=== PATIENT | female | born 1945 | race Caucasian/White ===

== ENCOUNTER 2019-02-05 18:45 | Emergency (ER) | payer SELFPAY ==
[2019-02-05 20:29] LABS: ABSOLUTE BASOPHILS # (AUTO) 0.1 10^3/uL (0.0-0.2); ABSOLUTE EOSINOPHILS # (AUTO) 0.1 10^3/uL (0.0-0.6); ABSOLUTE LYMPHOCYTES (AUTO) 1.2 10^3/uL (0.5-4.7); ABSOLUTE MONOCYTES (AUTO) 0.7 10^3/uL (0.1-1.4); ABSOLUTE NEUT (AUTO) 7.2 10^3/uL (1.7-8.2); BASOPHILS % (AUTO) 0.6 % (0-2); EOSINOPHILS % (AUTO) 0.7 % (0-6); HEMATOCRIT 33.7 % (36.0-47.0); HEMOGLOBIN 11.6 g/dL (12.0-15.5); MEAN CORPUSCULAR HEMOGLOBIN 29.3 pg (27.0-33.4); MEAN CORPUSCULAR HGB CONC 34.5 g/dL (32.0-36.0); MEAN CORPUSCULAR VOLUME 85 fl (80-97); MONOCYTES % (AUTO) 7.2 % (3-13); PLATELET COUNT 316 10^3/uL (150-450); RED BLOOD COUNT 3.96 10^6/uL (3.72-5.28); RED CELL DISTRIBUTION WIDTH 12.7 % (11.5-14.0); SEGMENTED NEUTROPHILS % (AUTO) 78.5 % (42-78); TOTAL CELLS COUNTED % (AUTO) 100 %; WHITE BLOOD COUNT 9.2 10^3/uL (4.0-10.5)
[2019-02-05 20:53] LABS: ALANINE AMINOTRANSFERASE 18 U/L (9-52); ALBUMIN 3.8 g/dL (3.5-5.0); ALKALINE PHOSPHATASE 45 U/L (38-126); ANION GAP 12 (5-19); ASPARTATE AMINO TRANSFERASE 19 U/L (14-36); BILIRUBIN,DIRECT 0.3 mg/dL (0.0-0.4); BILIRUBIN,TOTAL 0.4 mg/dL (0.2-1.3); BLOOD UREA NITROGEN 15 mg/dL (7-20); CALCIUM 9.5 mg/dL (8.4-10.2); CARBON DIOXIDE 26 mmol/L (22-30); CHLORIDE 92 mmol/L (98-107); GLUCOSE 112 mg/dL (75-110); POTASSIUM 3.6 mmol/L (3.6-5.0); SODIUM 130.3 mmol/L (137-145); TOTAL PROTEIN 7.1 g/dL (6.3-8.2)
--- NOTE | 2019-02-05 21:17 | ER Document Report ---
ED General - General Chief Complaint: Eye Problem Stated Complaint: EYE INJURY Time Seen by Provider: 02/05/19 19:04 Primary Care Provider: REGINA LE [Primary Care Provider] - Follow up as needed TRAVEL OUTSIDE OF THE [place] IN LAST 30 DAYS: No - HPI Notes: Patient is a 73-year-old female, who does not see doctors regularly, sent in for evaluation by ophthalmology. Evidently approximately 11 days ago she was at the [facility]. She had a sudden onset of a foreign body sensation in her left eye. She could not take out her contact lenses at that point, she had to drive home. She took out her contact lenses that night. She states that since then she has had worsening redness and discharge from her eye. 2 days following initial discomfort, she started having significant pain. She was trying Visine without any relief. She now states she has difficulty seeing from the left side of her vision at all from that left eye. She was actually evaluated by Dr. Arreaga. He found her to have a significant corneal ulceration, hypo- pion, and was concerned about the possibility of the impending globe rupture. He spoke with Dr. Tovar, plate printer at [facility], who agreed with the urgency of the situation. She accepted the patient in transfer, but they were unable to procure transportation. The patient was treated there with Besivance, to be used every 30 minutes, and sent to the ED for further evaluation. The patient denies any fever. Denies any other acute issues. - Related Data Allergies/Adverse Reactions: No Known Allergies Allergy (Unverified 02/05/19 23:10) Past Medical History - General Information source: Patient, [facility] - Social History Smoking Status: Former Smoker Family History: Reviewed & Not Pertinent - Medical History Medical History: Negative Review of Systems - Review of Systems Constitutional: No symptoms reported EENT: See HPI Cardiovascular: No symptoms reported Respiratory: No symptoms reported Gastrointestinal: No symptoms reported Genitourinary: No symptoms reported Musculoskeletal: No symptoms reported Skin: No symptoms reported Neurological/Psychological: No symptoms reported Physical Exam - Vital signs Vitals: Temp Pulse Resp BP Pulse Ox 98.1 F 63 16 181/73 H 98 02/05/19 18:56 02/05/19 18:56 02/05/19 18:56 02/05/19 18:56 02/05/19 18:56 - Notes Notes: Vital signs reviewed, please refer to chart. Patient is normocephalic, atraumatic. Neck is supple without meningismus. Heart is regular rate and rhythm. Lungs are clear to auscultation bilaterally. Abdomen is soft, nontender, normoactive bowel sounds throughout. Extremities without cyanosis, clubbing, edema. Peripheral pulses are equal. Skin is warm and dry. Patient is awake, alert, neurological exam is nonfocal. - HEENT Conjunctiva: Injected Cornea: Corneal ulcer Extraocular movements intact: Yes Anterior chamber: Other - Hypopyon, left eye Course - Re-evaluation Re-evalutation: 02/05/19 21:16 Patient presents emergency department for evaluation of corneal ulcer and hypopyon. Referred here by ophthalmology, exam deferred to them. Patient is u sing Besivance every 30 minutes as instructed. Laboratory vesication is ordered and found to be unremarkable. Patient remained stable. I did call the transfer line at [facility]. I was notified that the ER was not excepting transfers at this time. Awaiting phone call from Dr. Tovar. 02/05/19 23:[address] Garcia. She unfortunately recommended eyedrops that we do not have at this time. She asked that we start the patient on gentamicin eyedrops every hour. She did recommend stopping the Besivance. Unfortunately there are ED is not excepting transfers at this time. At [address] [facility], Dr. Murcia at 2240. He states he does not believe that there facility is not equipped to handle this emergency, and recommends transfer to [place]. Phone call currently placed to [facility]. 02/05/19 23:56 I did speak with Dr. Enriquez regarding this patient. She accepted her as an ED to ED transfer. Accepting physician is Dr. Comfort Perez. - Vital Signs Vital signs: Temp Pulse Resp BP Pulse Ox 98.1 F 60 16 170/86 H 98 02/05/19 23:17 02/05/19 23:17 02/05/19 23:17 02/05/19 23:17 02/05/19 23:17 - Laboratory Result Diagrams: 02/05/19 20:19 02/05/19 20:19 Laboratory results interpreted by me: 02/05/19 02/05/19 20:19 20:19 Hgb 11.6 L Hct 33.7 L Seg Neutrophils % 78.5 H Sodium 130.3 L Chloride 92 L Glucose 112 H Discharge - Discharge Clinical Impression: Hypopyon of left eye Corneal ulcer Qualifiers: Laterality: left Qualified Code(s): H16.002 - Unspecified corneal ulcer, left eye Referrals: LOCALMD,NO [Primary Care Provider] - Follow up as needed
[2019-02-05] MEDS ORDERED: GENTAMICIN SULFATE 0.3% OPH SOLN (5 ML/ER DISP) OS SCH (22:30)
[2019-02-05] MEDS: GENTAMICIN SULFATE 0.3% OPH SOLN (5 ML/ER DISP) OS SCH ×2 (23:01→23:11)
[2019-02-06] MEDS ORDERED: GENTAMICIN SULFATE 0.3% OPH SOLN (5 ML/ER DISP) OS SCH
[2019-02-06] MEDS: GENTAMICIN SULFATE 0.3% OPH SOLN (5 ML/ER DISP) OS SCH ×2 (00:18→01:14)
[2019-02-06 01:26] VITALS: BP 174/69
== END 2019-02-06 01:26 | disposition short-term general hospital (02) ==
LOC: ER 18:45
DX: H20.052 Hypopyon, left eye (principal); H16.002 Unspecified corneal ulcer, left eye
CPT/HCPCS: 99284; 36415; 85025; 80053; J3490